=== PATIENT | female | born 1990 | race Caucasian/White ===

== ENCOUNTER 2016-05-27 10:43 | Emergency (ER) | payer SELFPAY ==
[~2016-05-27] VITALS: Ht 157.5 cm; Wt 75.5 kg
[~2016-05-27 10:43] MED LIST: PREN1TAB49
[2016-05-27 10:46] VITALS: Ht 157.5 cm; Wt 75.5 kg
[2016-05-27] MEDS ORDERED: KETOROLAC 30 MG INJ IV STA (11:33)
[2016-05-27] MEDS ORDERED: CEFTRIAXONE 1 GM/50 ML (PMX) 50 ML IVPB STA (11:33)
[2016-05-27] MEDS ORDERED: SOD CHLORIDE 0.9% 1,000 ML IV STA (11:33)
[2016-05-27] MEDS ORDERED: DEXAMETHASONE 10 MG/ML 1 ML INJ IV ONE (12:00)
[2016-05-27 12:01] LABS: ADD SCAN DIFF NO
[2016-05-27 12:14] LABS: ALBUMIN 4.6 g/dl (3.3-4.9); BASOPHIL # 0.1 10^3/ul (0.0-0.1); BASOPHILS % 0.3 % (0.0-2.0); EOSINOPHILS % 0.1 % (0.0-7.0); HEMATOCRIT 40.5 % (37.0-47.0); HEMOGLOBIN 13.5 g/dl (12.0-16.0); LYMPHOCYTES # 1.5 10^3/ul (0.8-2.9); LYMPHOCYTES % 8.6 % (15.0-51.0); MEAN CORPUSCULAR HEMOGLOBIN 29.7 pg (29.0-33.0); MEAN CORPUSCULAR HGB CONC 33.3 g/dl (32.0-37.0); MEAN PLATELET VOLUME 10.7 fl (7.4-10.4); MONOCYTE # 1.1 10^3/ul (0.3-0.9); MONOCYTES % 6.2 % (0.0-11.0); NEUTROPHIL # 14.8 10^3/ul (1.6-7.5); NEUTROPHILS % 84.4 % (39.0-77.0); PLATELET COUNT 280 10^3/UL (140-415); POTASSIUM 3.6 mmol/L (3.5-5.1); RED BLOOD COUNT 4.55 10^6/ul (4.20-5.40); RED CELL DISTRIBUTION WIDTH 12.8 % (11.5-14.5); WHITE BLOOD COUNT 17.5 10^3/ul (4.8-10.8)
[2016-05-27 12:17] LABS: ALBUMIN/GLOBULIN RATIO 1.09; BILIRUBIN,INDIRECT 0.5 mg/dl (0-1.1); BILIRUBIN,TOTAL 0.5 mg/dl (0.2-1.3); CALCIUM 9.6 mg/dl (8.4-10.2); CREATININE 0.8 mg/dl (0.44-1.00); TOTAL PROTEIN 8.8 g/dl (6.1-8.1)
[2016-05-27] MEDS ORDERED: PRED20TA PO (12:41)
[2016-05-27] MEDS ORDERED: AMOX1TAB10 PO (12:41)
[2016-05-27] MEDS ORDERED: IBUP-1542 PO (12:42)
[2016-05-27 13:03] VITALS: BP 114/74; PULSE 84; RESP 20; TEMP 98.3
--- NOTE | 2016-06-07 10:39 | ERD ---
ER Documentation Chief Complaint Date/Time DATE: 06/07/16 TIME: 10:[address],ear aches,castaneda HPI This 25-year-old female complains of sore throat right ear pain intermittent fevers over the last week. She denies cough, vomiting, abdominal pain, diarrhea. She has a mild bitemporal headache as well. She denies neck stiffness or rashes. ROS All systems reviewed and are negative except as per history of present illness. Medications Home Meds Active Scripts Ibuprofen* (Motrin*) 600 Mg Tab, 600 MG PO Q6, #15 TAB Prov:MADHU CAMPBELL MD 05/27/16 Prednisone* (Prednisone*) 20 Mg Tab, 40 MG PO DAILY for 4 Days, TAB Start May 28, 2016. Prov:MADHU CAMPBELL MD 05/27/16 Amoxicillin/Potassium Clav (Amox-Clav 875-125 mg Tablet) 875-125 mg Tab, 1 TAB PO BID for 10 Days, #14 TAB Prov:MADHU CAMPBELL MD 05/27/16 Reported Medications Vits W-Ca,Fe,Fa(<1MG) () 1 Tab Tablet 12/07/09 Allergies Allergies: Coded Allergies: No Known Drug Allergies (Unverified Allergy, Mild, 05/27/16) PMhx/Soc Medical and Surgical Hx: pt denies Medical Hx, pt denies Surgical Hx History of Surgery: No Anesthesia Reaction: No Hx Neurological Disorder: No Hx Respiratory Disorders: No Hx Cardiac Disorders: No Hx Psychiatric Problems: No Hx Miscellaneous Medical Probl: No Hx Alcohol Use: No Hx Substance Use: No Hx Tobacco Use: No Physical Exam Physical Exam Const: [] Alert, not ill-appearing. Potato voice. Head: Atraumatic Eyes: Normal Conjunctiva ENT: Normal External Ears, Nose and Mouth. The red tonsils 3+ with draining pus. He was midline. Airways patent. There are some tender anterior cervical lymphadenitis. Neck: Full range of motion..~ No meningismus. Resp: Clear to auscultation bilaterally Cardio: Regular rate and rhythm, no murmurs Abd: Soft, non tender, non distended. Normal bowel sounds Skin: No petechiae or rashes Back: No midline or flank tenderness Ext: No cyanosis, or edema Neur: Awake and alert Psych: Normal Mood and Affect Results 24 hrs Laboratory Tests Test 05/27/16 11:45 White Blood Count 17.510^3/ul Red Blood Count 4.5510^6/ul Hemoglobin 13.5g/dl Hematocrit 40.5% Mean Corpuscular Volume 89.0fl Mean Corpuscular Hemoglobin 29.7pg Mean Corpuscular Hemoglobin Concent 33.3g/dl Red Cell Distribution Width 12.8% Platelet Count 32037^3/UL Mean Platelet Volume 10.7fl Neutrophils % 84.4% Lymphocytes % 8.6% Monocytes % 6.2% Eosinophils % 0.1% Basophils % 0.3% Nucleated Red Blood Cells % 0.0/100WBC Neutrophils # 14.810^3/ul Lymphocytes # 1.510^3/ul Monocytes # 1.110^3/ul Eosinophils # 0.010^3/ul Basophils # 0.110^3/ul Nucleated Red Blood Cells # 0.010^3/ul Sodium Level 139mmol/L Potassium Level 3.6mmol/L Chloride Level 97mmol/L Carbon Dioxide Level 28mmol/L Anion Gap 18 Blood Urea Nitrogen 10mg/dl Creatinine 0.80mg/dl Glucose Level 123mg/dl Calcium Level 9.6mg/dl Total Bilirubin 0.5mg/dl Direct Bilirubin 0.00mg/dl Indirect Bilirubin 0.5mg/dl Aspartate Amino Transf (AST/SGOT) 16IU/L Alanine Aminotransferase (ALT/SGPT) 18IU/L Alkaline Phosphatase 77IU/L Total Protein 8.8g/dl Albumin 4.6g/dl Globulin 4.20g/dl Albumin/Globulin Ratio 1.09 Monoscreen Negative Current Medications Medications (Trade) Dose Ordered Sig/Darell Route PRN Reason Start Time Stop Time Status Last Admin Dose Admin Sodium Chloride (NS) 1,000 ml @ 1,000 mls/hr Q1H STAT IV 05/27/16 11:33 05/27/16 12:32 DC 05/27/16 11:51 Ketorolac Tromethamine 30 mg 30 mg ONCE STAT IV 05/27/16 11:33 05/27/16 11:36 DC 05/27/16 11:52 Ceftriaxone Sodium (Rocephin) 50 ml @ 100 mls/hr ONCE STAT IVPB 05/27/16 11:33 05/27/16 12:02 DC 05/27/16 11:52 Dexamethasone (Decadron) 10 mg ONCE ONCE IV 05/27/16 12:00 05/27/16 12:01 DC 05/27/16 11:52 Procedures/MDM Patient presents with signs symptoms of what appears to be a peritonsillar abscess was just actively draining. There is no evidence of airway obstruction. An IV was obtained and patient was given 1 L normal saline IV, Decadron 10 mg IV, Rocephin 1 g IV and Toradol 30 mg IV. Patient is tolerating p.o.'s after observation treatment should be amenable to outpatient treatment as abscess is currently draining spontaneously. Patient does not appear to currently need incision and drainage advised to recheck the next day for shortness breath, difficulty swallowing, worsening symptoms otherwise take medicine as prescribed and follow-up with primary care doctor this week. The patient was stable with no new complaints during the ER course. Clinically, there is no current evidence to suggest meningitis, sepsis, acute abdomen, pneumonia, acute coronary syndrome, pulmonary embolism, or any other emergent condition appearing to require further evaluation or hospitalization. The patient should certainly return for any new or worsening symptoms per the aftercare instructions. They should otherwise follow-up with her primary care doctor for reevaluation this week. Departure Diagnosis: Primary Impression: Peritonsillar abscess Condition: Stable Patient Instructions: Peritonsillar Infection Abx Only, No I And D Additional Instructions: See ENT for persistent symptoms this week. Drink plenty of fluids at home. MADHU CAMPBELL MD Jun 07, 2016 10:39
== END 2016-05-27 13:02 | disposition home or self-care (01) ==
LOC: FTE 10:43
DX: J36 Peritonsillar abscess (principal)
CPT/HCPCS: 80053; 85025; 86308; J0696; J1100; J1885; J7030; 36415; 96374; 96375